=== PATIENT | female | born 1955 | race Caucasian/White ===

== ENCOUNTER 2022-01-23 13:51 | Emergency (ER) | payer OTHER ==
[~2022-01-23] VITALS: Ht 160 cm; Wt 101.6 kg
[~2022-01-23 13:51] MED LIST: FAMO-90 PO; LORA10TA19 PO
[2022-01-23 14:33] VITALS: BP 122/70
[2022-01-23 19:28] VITALS: BP 122/70
== END 2022-01-23 19:28 | disposition left against medical advice (07) ==
LOC: MED 13:51
DX: R68.83 Chills (without fever) (principal); Z53.21 Procedure and treatment not carried out due to patient leaving prior to being seen by health care provider